=== PATIENT | male | born 1970 | race Caucasian/White ===

== ENCOUNTER 2016-11-02 14:04 | Emergency (ER) | payer OTHER ==
[~2016-11-02] VITALS: Ht 172.7 cm; Wt 62.4 kg
[2016-11-02 15:13] LABS: HEMATOCRIT 40.6 % (38.0-50.0); MCH 31.1 PG (29.0-34.0); MCHC 34.7 G/DL (30.0-36.0); MCV 89.6 FL (86-99); MEAN PLAT.VOLUME 9.1 uM^3 (9.0-12.4); PLATELET COUNT 269 K/uL (156-360); RBC DIS.WIDTH-CV 13.2 % (11.8-14.6); RBC DIS.WIDTH-SD 43.4 % (39-53); RED BLOOD COUNT 4.53 M/uL (4.00-5.50); WHITE BLOOD COUNT 7.8 K/uL (4.1-10.2)
[2016-11-02 15:22] LABS: CHLORIDE 106 mEq/L (99-109); POTASSIUM 3.9 mEq/L (3.7-5.4); SODIUM 140 mEq/L (136-147)
[2016-11-02 15:24] LABS: GLUCOSE 108 mg/dL (70-99)
[2016-11-02 15:25] LABS: ANION GAP 7 MEQ/L (2-14)
[2016-11-02] MEDS ORDERED: AMOXICILLIN PO (15:25)
[2016-11-02] MEDS ORDERED: PERCOCET 5/31 TABLET PO (15:25)
[2016-11-02 15:28] LABS: GFR ESTIMATE (CALCULATED) > 59 mL/min/
[2016-11-02 15:29] LABS: UREA NITROGEN (BUN) 10 mg/dL (9-23)
[2016-11-02] MEDS ORDERED: PERCOCET 7.51 TABLET PO (17:28)
[2016-11-02 17:42] VITALS: BP 118/60
== END 2016-11-02 17:44 | disposition home or self-care (01) ==
LOC: EME 14:04
PROVIDERS: Physician Assistant
DX: R51 Headache (principal); G89.18 Other acute postprocedural pain; Z98.890 Other specified postprocedural states; F17.200 Nicotine dependence, unspecified, uncomplicated
CPT/HCPCS: 70487; 80048; 85027; 99281; 99285; J3010; J7030